=== PATIENT | female | born 1995 | race Caucasian/White ===

== ENCOUNTER 2019-03-28 08:49 | Emergency (ER) | payer OTHER ==
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
[2019-03-28 11:52] VITALS: BP 112/74
== END 2019-03-28 11:45 | disposition home or self-care (01) ==
LOC: ED 08:49
DX: S49.92XA Unspecified injury of left shoulder and upper arm, initial encounter (principal); S20.229A Contusion of unspecified back wall of thorax, initial encounter; Y04.2XXA Assault by strike against or bumped into by another person, initial encounter; Y92.029 Unspecified place in mobile home as the place of occurrence of the external cause; F17.200 Nicotine dependence, unspecified, uncomplicated; M51.34 Other intervertebral disc degeneration, thoracic region
CPT/HCPCS: 72050; 72070; 99282